=== PATIENT | male | born 1950 | race Caucasian/White ===

== ENCOUNTER 2025-02-03 09:18 | Outpatient (AMB) | payer MEDICARE, OTHER, SELFPAY | END 2025-02-03 10:12 | disposition home or self-care (01) | LOC: HO.HMGAL 09:18 | PROVIDERS: PCP Internal Medicine Endocrinology, Diabetes & Metabolism; Visit Provider Registered Nurse Emergency | DX: J30.89 Other allergic rhinitis (principal) | CPT/HCPCS: 95117; 95165 ==

== ENCOUNTER 2025-03-31 11:30 | Outpatient (AMB) | payer MEDICARE, OTHER, SELFPAY ==
--- OUTSIDE RECORDS SUMMARY | 2024-08-18 10:12 | XMS_ITS | Encounter Summary ---
Author Organization [facility] Address [address] [place] [address] Phone Care Team Providers Care Casting Agent Name Role Phone Gerson Mortensen MD Primary Care Provider + Encounter Details Date Type Department Care Team (Late st Contact Info) Description 08/18/2024 11:12 AM EDT Hospital Encounter [facility] [address] [place] [phone] Sylvie Urbina FNP [address] [place] [address] [email or web address] Social History Tobacco Use Types Packs/Day Years Used Date Smoking Tobacco: Never Smokeless Tobacco: Never Education Answer Date Recorded Are you interested in more education? Not on walter e 08/24/2022 Are you concerned about learning? Not on file 08/24/2022 No 08/24/2022 No 08/24/2022 Digital Access Answer Date Recorded No 09/25/2022 No 09/25/2022 Reliable internet access at home? Not on file 09/25/2022 Device with a working camera? Not on file Sex and Gender Information Value Date Recorded Sex Assigned at Not on file Legal Sex Male 9:41 AM EDT Gender Identity Not on file Sexual Orientation Not on file documented as of this encounter Plan of Treatment Not on file documented as of this encounter Procedures Procedure Name Priority Date/Time Associated Diagnosis Comments XR CHEST PA AND LATERAL 2 VIEWS Urgent/patient waiting 08/18/2024 11:15 AM EDT Viral upper respiratory tract infection with cough documented in this encounter Results * XR CHEST PA AND LATERAL 2 VIEWS (08/18/2024 11:15 AM EDT) Anatomical Region Laterality Modality Chest Computed Radiogr aphy 08/18/2024 11:2 1 AM EDT Impressions 08/18/2024 11:22 AM EDT Mild left lower lobe atelectasis. No other acute abnormality. Narrative 08/18/2024 11:22 AM EDT XR CHEST PA AND LATERAL 2 VIEWS Referring clinician's provided indication for this examination in [facility]: Cough; PRODUCTIVE, SICK X 1 WK, HX ASTHMA COMPARISON: None FINDINGS: Devices/Tubes/Lines: None. Lungs: Mild atelectasis in the left lower lobe. No other air space consolidation. Pleura: Normal. No pleural effusion or pneumothorax. Heart/Mediastinum: Normal heart and mediastinum. Bones/Soft Tissues: Degenerative changes of the spine. No acute osseous abnormality. Procedure Note Norma Gee MD, PhD - 08/18/2024 XR CHEST PA AND LATERAL 2 VIEWS Referring clinician's provided indication for this examination in Epic:Cough; PRODUCTIVE, SICK X 1 WK, HX ASTHMA COMPARISON: None FINDINGS: Devices/Tubes/Lines: None. Lungs: Mild atelectasis in the left lower lobe. No other air spaceconsolidation. Pleura: Normal. No pleural effusion or pneumothorax. Heart/Mediastinum: Normal heart and mediastinum. Bones/Soft Tissues: Degenerative changes of the spine. No acute osseousabnormality. IMPRESSION: Mild left lower lobe atelectasis. No other acute abnormality. Sylvie Urbina JUNIOR LINUX ADMINISTRATOR IMG XR CHEST Final Resul t documented in this encounter Visit Diagnoses Not on filedocumented in this encounter Care Teams Casting Agent Relationship Specialty Start Date End Date Gerson Mortensen MD [address] [place] [phone] PCP - General Internal Medicine 05/17/20 documented as of this encounter Additional Source Comments The information contained in this document represents components of the legal health record. It is not the complete legal health record.[facility]
--- OUTSIDE RECORDS SUMMARY | 2025-03-31 13:55 | XMS_ITS | Encounter Summary ---
Author Organization [facility] Address [address] [facility] [address] [place] [phone] Phone Care Team Providers Care Spiritual Care Coordinator Name Role Phone Hayden Blunt MD Primary Care Provider Unavail Gerson Velasquez MD Primary Care Provider + Encounter Details Date Type Department Care Team (Latest Contact Info) Description 01/29/2019 Transcribe Orders [facility] Phleb [address] [address] Jesus Biswas MD [address] [place] [address], [address] [place] [address] [email or web address] Elevated prostate specific antigen (PSA) (Primary Dx) Social History Tobacco Use Types Packs/Day Years Used Date Smoking Tobacco: Never Assessed Sex and Gender Information Value Date Recorded Sex Assigned at Not on file Legal Sex Male 9:41 AM EDT Gender Identity Not on file Sexual Orientation Not on file documented as of this encounter Plan of Treatment Not on file documented as of this encounter Results * (ABNORMAL) PSA (screening) (01/29/2019 9:47 AM EDT) PSA 10.10(H) 0 - 4.00 ng/mL [facility] Blood 01/29/2019 9:47 AM EDT 01/29/2019 9:49 AM EDT us Jesus iBswas MD LAB BLOOD BKR ORDERABLES Final Result [facility] [address] [place] [address] documented in this encounter Visit Diagnoses Diagnosis Elevated prostate specific antigen (PSA)- Primary documented in this encounter Additional Health Concerns Infection Onset Date Last Indicated Resolved Time CoV-Risk 03/01/2022 03/01/2022 03/12/2022 7:07 AM EST documented as of this encounter Care Teams Spiritual Care Coordinator Relationship Specialty Start Date End Date Hayden Blunt MD PCP - General Endocrinology 01/29/19 05/16/20 Gerson Mortensen MD [address] [place] [phone] PCP - General Internal Medicine 05/17/20 documented as of this encounter Additional Source Comments The information contained in this document represents components of the legal health record. It is not the complete legal health record.[facility]
--- OUTSIDE RECORDS SUMMARY | 2025-03-31 13:55 | XMS_ITS | Clinical Summary ---
Author Organization [facility] Address [address] [place] [address] Phone Care Team Providers Care Customer Experience Analyst Name Role Phone Gerson Mortensen MD Primary Care Provider + Allergies Active Allergy Reactions Criticality Noted Date Comments Simvastatin 07/03/2013 Myalgias Medications rosuvastatin (CRESTOR) 20 MG tablet Take 25 mg by mouth daily. Active fluticasone propion-salmete rol (ADVAIR DISKUS) 100-50 mcg/dose DISKUS Inhale 100 mcg/actuation of fluticasone into the lungs. Active albuterol 90 mcg/actuation inhaler Inhale 2 puffs into the lungs every 6 (six) hours as needed for wheezing. Active metoprolol succinate (TOPROL-XL) 50 MG 24 hr tablet Take 50 mg by mouth daily. 0 Active nitroglycerin (NITROSTAT) 0.[address] 1 TAB UNDER THE TONGUE EVERY 5 MINUTES NEEDED FOR CHEST PAIN. 0 Active ADVAIR DISKUS 250-50 mcg/dose DISKUS TAKE 1 PUFF BY MOUTH TWICE A DAY 2 Active rosuvastatin (CRESTOR) 40 MG tablet Take 40 mg by mouth daily. 2 Active aspirin 81 MG EC tablet Take 81 mg by mouth. 3 Active ezetimibe (ZETIA) 10 mg tablet Take 10 mg by mouth. 4 Active amLODIPine (NORVASC) 5 MG tablet Take 5 mg by mouth. 5 07/25/19 26 Active fluticasone propion-salmete roL (WIXELA INHUB) 250-50 mcg/dose DISKUS Inhale 1 puff into the lungs 2 (two) times a day. 4 Active inhaler spacing device (AEROCHAMBER,BR EATHERITE) Spcr Inhale 1 each into the lungs every 4 (four) hours as needed (with inhaler). 1 each 5 Active Active Problems Problem Noted Date Diagnosed Date Essential hypertension 12/05/2022 Overview (08/14/2024): Last Assessment & Plan: blood pressure well-controlled. Continue beta-arelis at current dose. Type 2 diabetes mellitus with peripheral vascula r disease 05/22/2021 Overview (08/14/2024): ED Elevated PSA 12/25/2018 Overview (08/14/2024): PSA is 6.4 12/22/2018 CAD (coronary artery disease) 06/10/2014 Overview (08/14/2024): -status post left heart cath in April of 2014 showing chronic total occlusion of the distal OM 2 branch of the left circumflex and chronic total occlusion of the distal RCA, and only mild disease of the LAD, with preserved ejection fraction for which medical management was recommended -Ventriculogram at the time of cath showed a preserved ejection fraction without wall motion abnormalities at 55% -Has had good control of his angina with medical management alone since then with CCS class I symptoms -Most recent echocardiogram on 05/25/2020 showing normal biventricular size and systolic function, normal left ventricular regional wall motion with an ejection fraction of 55 to 60%, normal left ventricular diastolic function, normal RV systolic pressure, no hemodynamically significant valve disease Mixed hyperlipidemia 06/23/2008 Overview (08/14/2024): Last Assessment & Plan: Patient's goal LDL is less than 70. He is on maximum dose Crestor. 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 Therefore, we will add Zetia 10 mg daily. Repeat lipid profile in 6 weeks time Allergic rhinitis 07/19/2006 Asthma 07/19/2006 Immunizations Immunization Administration Dates Next Due INFLUENZA, SPLIT VIRUS, TRIV ALENT W/ PRESERVATIVE IM 01/25/2016,02/22/2015,01/28/2008,2006 Influenza High-Dose Trivalen t Preservative Free IM 01/21/2020,02/19/2019,05/17/2017 Influenza Quadrivalent Adjuv anted Preservative Free IM 02/22/2022,04/16/2021 Td (adult),2 Lf Tetanus Toxo id, PF, Adsorbed 07/19/2006 Tdap 07/03/2013 Zoster live 01/25/2016 Social History Tobacco Use Types Packs/Day Years Used Date Smoking Tobacco: Never Smokeless Tobacco: Never Tobacco Cessation:Counseling Given: Not Answered Education Answer Date Recorded Are you interested [...] on file Sexual Orientation Not on file Last Filed Vital Signs Vital Sign Reading Time Taken Comments Blood Pressure 109/75 08/18/2024 10:40 AM EDT Pulse 110 08/18/2024 10:40 AM EDT Temperature 36.8 C (98.3 F) 08/18/2024 10:40 AM EDT Respiratory Rate 19 08/18/2024 10:40 AM EDT Oxygen Saturation 96% 08/18/2024 10:40 AM EDT Inhaled Oxygen Concentration - - Weight 102.1 kg (225 lb) 08/14/2024 6:10 PM EDT Height 182.9 cm (6') 08/14/2024 6:10 PM EDT Body Mass Index 30.52 08/14/2024 6:10 PM EDT Plan of Treatment Health Maintenance Due Date Last Done Comments DEPRESSION SCREENING 1962 HEPATITIS C SCREENING 08/05/1969 COLOGUARD 08/05/1996 COLONOSCOPY 08/05/1996 COLORECTAL CANCER SCREENING 08/05/1996 FIT TEST 08/05/1996 FOBT 08/05/1996 SIGMOIDOSCOPY 08/05/1996 VIRTUAL COLONOSCOPY 08/05/1996 RSV VACCINE (1 - Risk 50-74 years 1-dose series) 08/05/2001 ZOSTER VACCINES (2 of 3) 03/21/2016 01/25/2016 DIABETIC EYE EXAM 08/14/2024 INFLUENZA VACCINE (#1) 2024 , 03/09/2023, 02/22/2022, Additional history exists HEMOGLOBIN A1C 12/06/2024 06/08/2024 COVID-19 VACCINE (2024- season) 2024 02/13/2024, 03/09/2023, 02/22/2022, Additional history exists BLOOD PRESSURE 02/17/2025 08/18/2024 URINE MICROALBUMIN/CREATININE RATIO 06/08/2025 06/08/2024 Adult Td,Tdap Booster 08/26/2033 08/27/2023 , 07/03/2013, 07/19/2006 PNEUMOCOCCAL VACCINES (50+ years) Completed 08/27/2023 SMOKING STATUS SCREENING (Once After 26 Yrs) Completed 08/18/2024 HEPATITIS A VACCINES Aged Out No long er eligible based on patient's age to complete this topic HIB VACCINES Aged Out No longer eligi ble based on patient's age to complete this topic MENINGOCOCCAL VACCINES (ACWY) Aged Out No longer eligible based on patient's age to complete this topic MENINGOCOCCAL VACCINES (B) Aged Out N o longer eligible based on patient's age to complete this topic Medical Devices Not on file Insurance MEDIC[facility] PART [facility] & [facility] MEDIC[facility] PART [facility] & [facility]PPLEMENT MEDICARE PART A & B [facility] MEDICARE SUPPLEMENT MEDICARE PART A & B [facility] EX[facility] MEDICARE SUPPLEMENT MEDICARE PART A & B [facility] EX[facility]ION MEDICARE SUPPLEMENT MEDICARE PART A & B [employer] MEDICARE SUPPLEMENT MEDICARE PART A & B [employer] MEDICARE SUPPLEMENT MEDICARE PART A & B Member Subscriber Plan / Payer ( fective 2016-Present) Name:Milad Dey Member ID:[id number] Relation to Subscriber:Self Name:Milad Dey Subscriber ID:[id number] Payer ID:[id number] Group ID:Not on file Type:Medicare Address: [facility] [employer] [facility].[address] [phone] [facility] MEDICARE SUPPLEMENT MEDICARE PART A & B [facility]TENSION MEDICARE SUPPLEMENT [facility] Address: [address] [phone] Care Teams Customer Experience Analyst Relationship Specialty Start Date End Date Gerson Mortensen MD [address] [place] [id number] PCP - General Internal Medicine 05/17/20 Additional Source Comments The information contained in this document represents components of the legal health record. It is not the complete legal health record.[facility]
--- OUTSIDE RECORDS SUMMARY | 2025-03-31 13:55 | XMS_ITS | Encounter Summary ---
Author Organization [facility] Address [address] [place] [phone] Phone Care Team Providers Care Process Developer Name Role Phone Gerson Mortensen MD Primary Care Provider + Encounter Details Date Type Department Care Team (Latest Contact Info) Description 01/09/2021 Transcribe Orders [facility] Phleb [address] [address] Jesus Biswas MD [address] [place] [address], [address] [address] [email or web address] Elevated prostate specific antigen (PSA) (Primary Dx) [...] this encounter Results * (ABNORMAL) PSA (screening) (01/09/2021 9:46 AM EDT) PSA 4.29(H) 0 - 4.00 ng/mL [facility] Blood 01/09/2021 9:46 AM EDT 01/09/2021 9:47 AM EDT us Jesus Biswas MD LAB BLOOD BKR ORDERABLES Final Result [facility] [address] [place] [address] documented in this encounter Visit Diagnoses Diagnosis Elevated prostate specific antigen (PSA)- Primary documented in this encounter Additional Health Concerns Infection Onset Date Last Indicated Resolved Time CoV-Risk 03/01/2022 03/01/2022 03/12/2022 7:07 AM EST documented as of this encounter Care Teams Process Developer Relationship Specialty Start Date End Date Gerson Mortensen MD [address] [place] [phone] PCP - General Internal Medicine 05/17/20 documented as of this encounter Additional Source Comments The information contained in this document represents components of the legal health record. It is not the complete legal health record.[facility]
--- OUTSIDE RECORDS SUMMARY | 2025-03-31 13:55 | XMS_ITS | Clinical Summary ---
Author Organization [facility] [address] [facility] Address [address] [place] [phone] Phone Care Team Providers Care [employer] Plant Supervisor Name Role Phone Gerson Mortensen MD Primary Care Provider [phone] Allergies Active Allergy Reactions Criticality Noted Date Comments Simvastatin 07/03/2013 Myalgias Medications Wixela Inhub 250-50 mcg/dose diskus inhaler INHALE 1 PUFF BY MOUTH TWICE A DAY 60 each 3 4 Active fluticasone propionate (FLONASE) 50 mcg/actuation nasal spray Administer 1 spray into affected nostril(s). 7 Active aspirin 81 mg EC tablet Take 1 tablet (81 mg total) by mouth 1 (one) time each day. 3 Active nitroglycerin (NITROSTAT) 0.[address] 1 tablet (0.4 mg total) under the tongue. 4 Active sildenafiL (VIAGRA) 100 mg tablet Take 1 tab 1 hour before needed 4 Active amLODIPine (NORVASC) 5 mg tablet Take 1 tablet (5 mg total) by mouth 1 (one) time each day. 30 each 2 5 07/25/19 26 Active ezetimibe (ZETIA) 10 mg tabletIndicati ons:Atheroscle rotic heart disease of ione coronary artery with other forms of angina pectoris (CMS/HCC V24) Take 1 tablet (10 mg total) by mouth 1 (one) time each day. 90 tablet 1 5 Active rosuvastatin (CRESTOR) 40 mg tablet Take 1 tablet (40 mg total) by mouth at bedtime. 90 tablet 1 5 Active albuterol HFA (PROAIR HFA ; PROVENTIL HFA ; VENTOLIN HFA) 90 mcg/actuation inhaler Inhale 2 puffs by mouth every 4 (four) hours if needed for wheezing or shortness of breath. 8.5 g 3 5 Active albuterol HFA (PROAIR HFA ; PROVENTIL HFA ; VENTOLIN HFA) 90 mcg/actuation inhaler Inhale 2 puffs by mouth every 4 (four) hours if needed for wheezing or shortness of breath. 8.5 g 3 5 03/08/20 25 Discontinu ed(Reorder ) Active Problems Problem Noted Date Diagnosed Date Erectile dysfunction 08/27/2023 Essential hypertension 12/05/2022 Overview (03/24/2024): Last Assessment & Plan: blood pressure well-controlled. Continue beta-arelis at current dose. Stable angina ([facility] V24) 12/05/2022 Type 2 diabetes mellitus wit h peripheral vascular disease ([facility] V24, [facility] V28) 05/22/2021 Overview (03/24/2024): ED Elevated PSA 12/25/2018 Overview (03/24/2024): PSA is 6.4 12/22/2018 Bradycardia 03/14/2015 Overview (03/24/2024): Last Assessment & Plan: Patient has ongoing asymptomatic bradycardia felt to be related to his long-term beta-arelis use. He has no symptoms referable to this bradycardia. Will try to split his beta-arelis to 25 mg twice daily in an effort to mitigate his stable angina. Otherwise, we are continuing his beta-blockade as she is tolerating it well Assessment & Plan (07/24/2024 5:07 PM EDT): - Discontinue metoprolol. - Start amlodipine 5 mg. - Informed about potential side effects of amlodipine, including lightheadedness, leg swelling, and stomach upset; advised to take with food. Orders: Ambulatory referral to Cardiology ECG 12 lead Obesity (BMI 30-39.9) 03/14/2015 CAD (coronary artery disease) 06/10/2014 Overview (07/24/2024): -status post left heart cath in April [...] systolic pressure, no hemodynamically significant valve disease Assessment & Plan (07/24/2024 5:07 PM EDT): CCS class I angina. However, I would like to see if I can better control his anginal symptoms mainly to get him to exercise more. - Modify antianginal medication to amlodipine 5 mg. - Discontinue metoprolol. - Continue rosuvastatin 40 mg at bedtime. - Continue baby aspirin. - Continue Zetia for cholesterol management. - Maintain regular exercise, including cardiovascular activities like walking and biking. Orders: Ambulatory referral to Cardiology Mixed hyperlipidemia 06/23/2008 Overview (03/24/2024): Last Assessment & Plan: Patient's goal LDL is less than 70. He is on maximum dose Crestor. 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 Therefore, we will add Zetia 10 mg daily. Repeat lipid profile in 6 weeks time Assessment & Plan (07/24/2024 5:07 PM EDT): - Continue rosuvastatin 40 mg. - Continue Zetia. 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 Overview (03/24/2024): multiple procedures as a child Encounters Date Type Department Care Team Description 01/22/2025 1:00 PM EDT Office Visit Walk-In Clinic - [address] [phone] Timo Sneed, [place] Symptoms of upper respiratory infection (URI) (Primary Dx); COVID 01/22/2025 Nurse Triage Adult Medicine [address] [phone] Gerson Mortensen MD 01/22/2025 Nurse Triage Adult Medicine [address] [phone] Gerson Mortensen MD from Last 3 Months Immunizations Immunization Administration Dates Next Due Influenza trivalent, 0.5mL ( Fluad) 65yo and older 03/09/2023,02/22/2022,04/16/2021,2019,02/19/2019,05/17/2017 Influenza trivalent, 0.5mL, preservative free (Fluarix; FluLaval; Fluzone) ages 6mo and older (Afluria) 3 years and older 01/25/2016,02/22/2015,01/28/2008,2006 Pfizer (ages 12 & older) Biv alent, COVID-19 03/09/2023,12/19/2021 Pneumococcal conjugate 20 va lent (Prevnar 20, PCV 20) 2mo and older 08/27/2023 Td Tetanus diptheria (Tdvax) 7yo and older 07/19/2006 Tdap Tetanus diptheria acell ular pertussis (Boostrix; Adacel) 7yo and older 08/27/2023,07/03/2013 Zoster Live 01/25/2016 Surgical History Surgery Date Site/Laterality Comments VASECTOMY PROCEDURE: AK VASECTOMY UNI/BI SPX W/POSTOP SEMEN EXAMS OTHER SURGICAL HISTORY PROCEDURE: ---- OTHER ----; COMMENT: strabismus surgery HAND SURGERY PROCEDURE: HISTORICAL HAND SURGERY; COMMENT: Dupetryn's contracture OTHER SURGICAL HISTORY 2012 PROCEDURE: ---- OTHER ----; COMMENT: sinus surgery, nasal polyps COLONOSCOPY 08/30 PROCEDURE: AK COLONOSCOPY STOMA DX INCLUDING COLLJ SPEC SPX COLONOSCOPY W/ POLYPECTOMY 12/01/13 PROCEDURE: AK COLSC FLX W/RMVL OF TUMOR POLYP LESION SNARE TQ; COMMENT: tics and adenomas; rpeat in 1 year COLONOSCOPY 02/07/15 PROCEDURE: AK COLONOSCOPY STOMA W/RMVL TAD POLYP/OTH LES SNARE; COMMENT: adenomas and tics; repeat in 3 yrs COLONOSCOPY 02/11/2019 PROCEDURE: HISTORICAL COLONOSCOPY; COMMENT: two polyps CARDIAC CATHETERIZATION KNEE SURGERY Medical History Medical History Date Comments Unspecified asthma(493.90) 07/19/2006 DX:Un specified asthma(493.90) Allergic rhinitis, cause unspecified 07/19/2006 DX:Allergic rhinitis, cause unspecified Contracture of tendon (sheath) 07/19/2006 D X:Contracture of tendon (sheath); COMMENT: Dupuytren's contracture left hand Mechanical strabismus, unspecified 07/19/2006 DX:Mechanical strabismus, unspecified; COMMENT: multiple procedures as a child Amblyopia, unspecified DX:Amblyo carmen, unspecified Cardiac ischemia 03/31/2014 DX:Cardiac isch emia Hx of hemorrhoids 05/13/2017 DX:Hx of hemor rhoids Hx of colonic polyps 05/13/2017 DX:Hx of co lonic polyps Hyperlipidemia Asthma CAD (coronary artery disease) Family History Medical History Relation Name Comments Glaucoma Father Other: congenital heart problem Father diabetes, Cataracts Maternal Grandmother Breast cancer Mother Breast cancer Sister Colon polyps Blindness Neg Hx Macular degeneration Neg Hx Strabismus Neg Hx Relation Name Status Comments Father Maternal Grandmother Mother Sister Social History Tobacco Use Types Packs/Day Years Used Date Smoking Tobacco: Never Smokeless Tobacco: Never Tobacco Cessation:Counseling Given: Not Answered Alcohol Use Standard Drinks/Week Comments Yes 0.8 (1 standard drink = 0.6 oz p ure alcohol) couple drinks a month Interpersonal Safety Answer Date Record ed Physical Abuse Unrecognized value 12/08/2024 Verbal Abuse Unrecognized value 12/08/2024 Sex and Gender Information Value Date Recorded Sex Assigned at Male 12/08/2024 8:54 AM EDT Legal Sex Male 2:23 AM EST Gender Identity Male 12/08/2024 8:54 AM EDT Sexual Orientation Straight 12/08/2024 8: 54 AM EDT Obstetrics History Last Filed Vital Signs Vital Sign Reading Time Taken Comments Blood Pressure 116/75 01/22/2025 1:01 PM EDT Pulse 84 01/22/2025 1:01 PM EDT Temperature 37 C (98.6 F) 01/22/2025 1:01 PM EDT Respiratory Rate 16 12/08/2024 10:50 AM EDT Oxygen Saturation 98% 01/22/2025 1:01 PM EDT Inhaled Oxygen Concentration - - Weight 99.8 kg (220 lb) 12/08/2024 9:16 AM EDT Height 180.3 cm (5' 11 ) 12/08/2024 9:16 AM EDT Body Mass Index 30.68 12/08/2024 9:16 AM EDT Plan of Treatment Upcoming Encounters Date Type Department Care Team (Late st Contact Info) Description 04/07/2025 12:00 PM EST Office Visit Adult Medicine [address] [phone] Jam Tinajero PA [address] [place] [address] Health Maintenance Due Date Last Done Comments Diabetes: Annual Foot Exam 08/05/1961 Diabetes: Annual Retina Eye Exam 08/05/1961 RSV Immunization Adult Patients (1 - Risk 50-74 years 1-dose series) 08/05/2001 Zoster Vaccines (2 of 3) 03/21/2016 01/25/2016 Medicare Annual Wellness Visit 04/07/2022 Social Influencers of Health Screening 04/07/2022 Depression Screening 04/29/2024 08/27/2023 Diabetes: Blood Sugar Control Test (HGBA1C) 12/06/2024 06/08/2024, 02/26/2024, 02/26/2024, Additional history exists COVID-19 Vaccine ( season) 2024 02/13/2024, 03/09/2023, 02/22/2022, Additional history exists Influenza Vaccine (#1) 2024 , 03/09/2023, 02/22/2022, Additional history exists Diabetes: Annual GFR (Glomerular Filtration Rate) 06/08/2025 06/08/2024, 08/27/2023, 08/27/2023 Hypertension/CHF/CAD Annual BMP Blood Test 06/08/2025 06/08/2024, 08/27/2023, 08/27/2023 Diabetes: Annual Urine Albumin-Creatinine Ratio (uACR) 09/08/2025 09/08/2024, 06/08/2024, 08/27/2023 Falls Risk Assessment 12/08/2025 12/08/2024, 024 Colorectal Cancer Screening: Colonoscopy 12/09/2027 12/08/2024, 02/11/2019 Cholesterol Screening (Lipid Panel) 06/08/2029 06/08/2024, 07/16/2023 DTaP,Tdap,and Td Vaccines (4 - Td or Tdap) 08/26/2033 08/27/2023, 07/03/2013, 07/19/2006 Hepatitis C Screening Completed 03/16/2014 Pneumococcal Vaccine: 50+ Years Completed 08/27/2023 HIB Vaccines Aged Out No longer eligi ble based on patient's age to complete this topic HPV Vaccines Aged Out No longer eligi ble based on patient's age to complete this topic Hepatitis A Vaccines Aged Out No long er eligible based on patient's age to complete this topic Hepatitis B Vaccines Aged Out No long er eligible based on patient's age to complete this topic IPV Vaccines Aged Out No longer eligi ble based on patient's age to complete this topic MMR Vaccines Aged Out No longer eligi ble based on patient's age to complete this topic Meningococcal ACWY Vaccine Aged Out N o longer eligible based on patient's age to complete this topic Meningococcal B Vaccine Aged Out No l onger eligible based on patient's age to complete this topic RSV Immunization Patients Under 20 months Aged Out No longer eligible based on patient's age to complete this topic Varicella Vaccines Aged Out No longer eligible based on patient's age to complete this topic Procedures Procedure Name Priority Date/Time Associated Diagnosis Comments POC RAPID [id number], MOLECULAR Routine 01/22/2025 1:10 PM EDT Symptoms of upper respiratory infection (URI) COLONOSCOPY Routine 12/08/2024 10:29 AM EDT Hx of colonic polyps MICROALBUMIN CREATININE URINE RATIO Routine 09/08/2024 1:48 PM EDT Controlled type 2 diabetes mellitus with microalbuminuria, without long-term current use of insulin (CMS/HCC V24, CMS/HCC V28) COMPREHENSIVE METABOLIC PANEL Routine 06/08/2024 9:31 AM EST Type 2 diabetes mellitus with other specified complication, with long-term current use of insulin (CMS/HCC V24, CMS/HCC V28) Essential hypertension Encounter for long-term (current) use of medications HEMOGLOBIN A1C Routine 06/08/2024 9:31 AM EST Type 2 diabetes mellitus with other specified complication, with long-term current use of insulin (CMS/HCC V24, CMS/HCC V28) LIPID PANEL WITH REFLEX TO DIRECT LDL Routine 06/08/2024 9:31 AM EST Mixed hyperlipidemia DEPRESSION SCREENING Routine 08/27/2023 FALLS RISK ASSESSMENT Routine 08/27/2023 HEPATITIS C SCREENING Routine 03/16/2014 from Last 3 Months or Most Recently Relevant to Health Maintenance Results * (ABNORMAL) Poc Rapid [id number], MOLECULAR (01/22/2025 1:10 PM EDT) COVID-19/SARS- COV-2 Rapid POC Positive(A ) Negative Swab Nasopharyngeal structure / Unknown 01/22/2025 1:10 PM EDT us Timo Sneed NP POINT OF CARE TEST ENTER/EDIT ORDERABLES Final Result * COLONOSCOPY Anesthesia - MAC; [facility] ENDOSCOPY (12/08/2024 10:29 AM EDT) Anatomical Region Laterality Modality Endoscopy 12/08/2024 10:0 6 AM EDT Impressions 12/08/2024 10:29 AM EDT - Hemorrhoids found on perianal exam. - Five 5 to 9 mm polyps in the ascending colon, removed with a cold snare. Resected and retrieved. - One 4 mm polyp in the cecum, removed with a jumbo cold forceps. Resected and retrieved. 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 - The examination was otherwise normal on direct and retroflexion views. Recommendation: - Discharge patient to home. - High fiber diet. - Continue present medications. - Await pathology results. - Repeat colonoscopy for surveillance based on pathology results. Narrative 12/08/2024 10:29 AM EDT [facility] GI Patient Name: Irene Dey Procedure Date: 12/08/2024 10:06 AM Date of : 1950 Age: 74 Gender: Male Note Status: Finalized Attending MD: Dorinda Hughes DO, [id number] Procedure Date No Time: 12/08/2024 Procedure: Colonoscopy Indications: High risk colon cancer surveillance: Personal history of colonic polyps Providers: Dorinda Hughes DO Referring MD: Gerson Mortensen MD Medicines: Monitored Anesthesia Care Complications: No immediate complications. Estimated blood loss: Minimal. Estimated Blood Loss: Estimated blood loss was minimal. Procedure: Pre-Anesthesia Assessment: - - Prior to the procedure, a History and Physical was performed, and patient medications and allergies were reviewed. The patient is competent. The risks and benefits of the procedure and the sedation options and risks were discussed with the patient. All questions were answered and informed consent was obtained. Patient identification and proposed procedure were verified by the physician, the nurse, the anesthesiologist, the stars specialist and the entry level lab technician in the pre-procedure area in the endoscopy suite. Mental Status Examination: alert and oriented. Airway Examination: normal oropharyngeal airway and neck mobility. Respiratory Examination: clear to auscultation. CV Examination: normal. Prophylactic Antibiotics: The patient does not require prophylactic antibiotics. Prior Anticoagulants: The patient has taken no anticoagulant or antiplatelet agents. ASA Grade Assessment: II - A patient with mild systemic disease. After reviewing the risks and benefits, the patient was deemed in satisfactory condition to undergo the procedure. The anesthesia plan was to use monitored anesthesia care (MAC). Immediately prior to administration of medications, the patient was re-assessed for adequacy to receive sedatives. The heart rate, respiratory rate, oxygen saturations, blood pressure, adequacy of pulmonary ventilation, and response to care were monitored throughout the procedure. The physical status of the patient was re-assessed after the procedure. After I obtained informed consent, the scope was passed under direct vision. Throughout the procedure, the patient's blood pressure, pulse, and oxygen saturations were monitored continuously. The Colonoscope was introduced through the anus and advanced to the cecum, identified by appendiceal orifice and ileocecal valve. The colonoscopy was performed without difficulty. The patient tolerated the procedure well. The quality of the bowel preparation was good. The ileocecal valve, appendiceal orifice, and rectum were photographed. Findings: Hemorrhoids were found on perianal exam. A few small-mouthed diverticula were found in the sigmoid colon and descending colon. There was no evidence of diverticular bleeding. Five sessile polyps were found in the ascending colon. The polyps were 5 to 9 mm in size. These polyps were removed with a cold snare. Resection and retrieval were complete. Verification of patient identification for the specimen was done. Estimated blood loss was minimal. A 4 mm polyp was found in the cecum. The polyp was sessile. The polyp was removed with a jumbo cold forceps. Resection and retrieval were complete. Estimated blood loss was minimal. There was a large lipoma, at the ileocecal valve. The polyp was removed with a cold snare. Resection and retrieval were complete. Estimated blood loss was minimal. The exam was otherwise without abnormality on direct and retroflexion views. Procedure Code(s): --- Professional --- 31040, Colonoscopy, flexible; with removal of tumor(s), polyp(s), or other lesion(s) by snare technique 10151, 59, Colonoscopy, flexible; with biopsy, single or multiple Diagnosis Code(s): --- Professional --- Z86.010, Personal history of colonic polyps K64.9, Unspecified hemorrhoids D12.2, Benign neoplasm of ascending colon D12.0, Benign neoplasm of cecum D17.5, Benign lipomatous neoplasm of intra-abdominal organs CPT copyright 2020 [employer]. All rights reserved. The codes documented in this report are preliminary and upon mounter sousaphones review may be revised to meet current compliance requirements. DORINDA Hughes DO 12/08/2024 10:29:06 AM This report has been signed electronically.Dorinda Hughes DO Number of Addenda: 0 Note Initiated On: 12/08/2024 10:06 AM Scope Withdrawal Time: 0 hours 11 minutes 47 seconds Scope In: 10:10:42 AM Scope Out: 10:26:45 AM Endoscopy Department at [facility] - [address] [place] [phone] Procedure Note Dorinda Hughes DO - 12/08/2024 [facility] GI Patient Name: Irene Dey Procedure Date: 12/08/2024 10:06 AM Date of : 1950 Age: 74 Gender: Male Note Status: Finalized Attending MD: Dorinda Hughes DO, [id number] Procedure Date No Time: 12/08/2024 Procedure: Colonoscopy Indications: High risk colon cancer surveillance: Personalhistory of colonic polyps Providers: Dorinda Hughes DO Referring MD: Gerson Mortensen MD Medicines: Monitored Anesthesia Care Complications: No immediate complications. Estimated blood loss: Minimal. Estimated Blood Loss: Estimated blood loss was minimal. Procedure: Pre-Anesthesia Assessment: - - Prior to the procedure, a History and Physicalwas performed, and patient medications and allergieswere reviewed. The patient is competent. The risks and benefits of the procedure and the sedation optionsand risks were discussed with the patient. Allquestions were answered and informed consent was obtained. Patient identification and proposed procedure were verified by the physician, the nurse, the anesthesiologist, the stars specialist and thetechnician in the pre-procedure area in the endoscopy suite. Mental Status Examination: alert and oriented.Airway Examination: normal oropharyngeal airway and neck mobility. Respiratory Examination: clear to auscultation. CV Examination: normal. Prophylactic Antibiotics: The patient does not requireprophylactic antibiotics. Prior Anticoagulants: The patient has taken no anticoagulant or antiplatelet agents. ASA Grade Assessment: II - A patient with mild systemic disease. After reviewing the risks and benefits,the patient was deemed in satisfactory condition to undergo the procedure. The anesthesia plan was touse monitored anesthesia care (MAC). Immediately priorto administration of medications, the patient was re-assessed for adequacy to receive sedatives. The heart rate, respiratory rate, oxygen saturations, blood pressure, adequacy of pulmonary ventilation,and response to care were monitored throughout the procedure. The physical status of the patient was re-assessed after the procedure. After I obtained informed consent, the scope was passed under direct vision. Throughout theprocedure, the patient's blood pressure, pulse, and oxygen saturations were monitored continuously. The Colonoscope was introduced through the anus and advanced to the cecum, identified by appendiceal orifice and ileocecal valve. The colonoscopy was performed without difficulty. The patient tolerated the procedure well. The quality of the bowel preparation was good. The ileocecal valve,appendiceal orifice, and rectum were photographed. Findings: Hemorrhoids were found on perianal exam. A few small-mouthed diverticula were found in the sigmoid colon and descending colon. There was no evidence of diverticular bleeding. Five sessile polyps were found in the ascendingcolon. The polyps were 5 to 9 mm in size. These polypswere removed with a cold snare. Resection and retrieval were complete. Verification of patientidentification for the specimen was done. Estimated blood loss was minimal. A 4 mm polyp was found in the cecum. The polyp was sessile. The polyp was removed with a jumbo cold forceps. Resection and retrieval were complete. Estimated blood loss was minimal. There was a large lipoma, at the ileocecal valve.The polyp was removed with a cold snare. Resection and retrieval were complete. Estimated blood loss was minimal. The exam was otherwise without abnormality ondirect and retroflexion views. Procedure Code(s): --- Professional --- 82399, Colonoscopy, flexible; with removal of tumor(s), polyp(s), or other lesion(s) by snare technique 11444, 59, Colonoscopy, flexible; with biopsy,single or multiple Diagnosis Code(s): --- Professional --- Z86.010, Personal history of colonic polyps K64.9, Unspecified hemorrhoids D12.2, Benign neoplasm of ascending colon D12.0, Benign neoplasm of cecum D17.5, Benign lipomatous neoplasm ofintra-abdominal organs CPT copyright 2020 [employer]. All rights reserved. The codes documented in this report are preliminary and upon mounter sousaphones reviewmay be revised to meet current compliance requirements. DORINDA Hughes DO 12/08/2024 10:29:06 AM This report has been signed electronically.Dorinda Hughes DO Number of Addenda: 0 Note Initiated On: 12/08/2024 10:06 AM Scope Withdrawal Time: 0 hours 11 minutes 47 seconds Scope In: 10:10:42 AM Scope Out: 10:26:45 AM Endoscopy Department at [facility] - [address] [place] [id number] IMPRESSION: - Hemorrhoids found on perianal exam. - Five 5 to 9 mm polyps in the ascending colon, removed with a cold snare. Resected andretrieved. - One 4 mm polyp in the cecum, removed with a jumbo cold forceps. Resected and retrieved. 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 - The examination was otherwise normal on directand retroflexion views. Recommendation: - Discharge patient to home. - High fiber diet. - Continue present medications. - Await pathology results. - Repeat colonoscopy for surveillance based on pathology results. us Dorinda Hughes DO GI~PROCEDURE ORDERABLES Final Re sult * Microalbumin creatinine urine ratio (09/08/2024 1:48 PM EDT) Creatinine, Urine 51.0 mg/dL LAB CHEMISTRY METHOD 09/08/2024 5:47 PM EDT [facility] Microalb, Ur 9.1 0.0 - 29.0 mg/L LAB CHEMISTRY METHOD 09/08/2024 5:47 PM EDT [facility] Microalb/Creat Ratio 18 <30 mg/g creat LAB CHEMISTRY METHOD 09/08/2024 5:47 PM EDT [facility] Urine Urine specimen obtained by clean catch procedure / Unknown Non-blood Collection / Unknown 09/08/2024 1:48 PM EDT 09/08/2024 1:48 PM EDT us Gerson Mortensen MD LAB URINE ORDERABLES Final Resu lt [facility] [address] [place] [address], [place] [phone] * Lipid panel with reflex to direct LDL (06/08/2024 9:31 AM EST) Cholesterol 121 0 - 200 mg/dL LAB CHEMISTRY METHOD 06/08/2024 12:57 PM EST [facility] Triglycerides 97 0 - 150 mg/dL LAB CHEMISTRY METHOD 06/08/2024 12:57 PM EST [facility] HDL 44 >=40 mg/dL LAB CHEMISTRY METHOD 06/08/2024 12:57 PM [facility] LDL Calculated 58 0 - 100 mg/dL LAB CHEMISTRY METHOD 06/08/2024 12:57 PM EST [facility] VLDL Cholesterol Saul 19.4 mg/dL LAB CHEMISTRY METHOD 06/08/2024 12:57 PM [facility] Non HDL Chol. (LDL+VLDL) 77 <145 mg/dL LAB CHEMISTRY METHOD 06/08/2024 12:57 PM EST [facility] Chol/HDL Ratio 2.8 0.0 - 4.4 LAB CHEMISTRY METHOD 06/08/2024 12:57 PM [facility] Blood Venous blood specimen / Unknown Venipuncture / Unknown 06/08/2024 9:31 AM EST 06/08/2024 9:31 AM EST us Gerson Mortensen MD LAB BLOOD ORDERABLES Final Resu lt Performing Organization Address City/[facility]/ZIP Co de Phone Number [facility] [address] [place] [address], [place] [phone] * (ABNORMAL) Hemoglobin A1c (06/08/2024 9:31 AM EST) Hemoglobin A1C 6.9(H) <6.5 % LAB CHEMISTRY METHOD 06/08/2024 1:38 PM [facility] Mean Bld Glu Estim. 151 mg/dL LAB CHEMISTRY METHOD 06/08/2024 1:38 PM [facility] Blood Venous blood specimen / Unknown Venipuncture / Unknown 06/08/2024 9:31 AM EST 06/08/2024 9:31 AM EST us Gerson Mortensen MD LAB BLOOD ORDERABLES Final Resu lt [facility] [address] [place] [address], * (ABNORMAL) Comprehensive metabolic panel (06/08/2024 9:31 AM EST) [facility] Sodium 137 133 - 145 mmol/L LAB CHEMISTRY METHOD 06/08/2024 12:57 PM [facility] Potassium 3.9 3.5 - 5.5 mmol/L LAB CHEMISTRY METHOD 06/08/2024 12:57 PM [facility] Chloride 105 96 - 110 mmol/L LAB CHEMISTRY METHOD 06/08/2024 12:57 PM [facility] CO2 26 21 - 32 mmol/L LAB CHEMISTRY METHOD 06/08/2024 12:57 PM [facility] Anion Gap 6 3 - 11 LAB CHEMISTRY METHOD 06/08/2024 12:57 PM [facility] Glucose 140(H) 70 - 100 mg/dL LAB CHEMISTRY METHOD 06/08/2024 12:57 PM [facility] BUN 17 5 - 25 mg/dL LAB CHEMISTRY METHOD 06/08/2024 12:57 PM [facility] Creatinine 1.02 0.70 - 1.30 mg/dL LAB CHEMISTRY METHOD 06/08/2024 12:57 PM [facility] eGFR 78 >=60 mL/min/1. 73m2 LAB CHEMISTRY METHOD 06/08/2024 12:57 PM [facility] Comment:Calculation based on the Chronic Kidney Disease Epidemiology Collaboration (CKD-EPI) equation refit without adjustment for race. BUN/Creatinine Ratio 16.7 LAB CHEMISTRY METHOD 06/08/2024 12:57 PM [facility] Calcium 9.5 8.5 - 10.5 mg/dL LAB CHEMISTRY METHOD 06/08/2024 12:57 PM [facility] AST (SGOT) 17 10 - 42 unit/L LAB CHEMISTRY METHOD 06/08/2024 12:57 PM [facility] ALT (SGPT) 29 10 - 60 unit/L LAB CHEMISTRY METHOD 06/08/2024 12:57 PM [facility] Alkaline Phosphatase 62 42 - 121 unit/L LAB CHEMISTRY METHOD 06/08/2024 12:57 PM [facility] Total Protein 6.9 6.0 - 8.0 g/dL LAB CHEMISTRY METHOD 06/08/2024 12:57 PM [facility] Albumin 3.8 3.2 - 5.0 g/dL LAB CHEMISTRY METHOD 06/08/2024 12:57 PM [facility] Total Bilirubin 1.1 0.0 - 1.4 mg/dL LAB CHEMISTRY METHOD 06/08/2024 12:57 PM [facility] Blood Venous blood specimen / Unknown Venipuncture / Unknown 06/08/2024 9:31 AM EST 06/08/2024 9:31 AM EST us Gerson Mortensen MD LAB BLOOD ORDERABLES Final Resu lt [facility] [address] [place] [address], * Falls Risk Assessment (08/27/2023) Falls Risk Assessment abstracted Historical Provider HEALTH MAINTENANCE Final Result * Depression Screening (08/27/2023) Depression Screening abstracted Historical Provider HEALTH MAINTENANCE Final Result * Hepatitis C Screening (03/16/2014) Hepatitis C Screening abstracted Historical Provider HEALTH MAINTENANCE Final Result from Last 3 Months or Most Recently Relevant to Health Maintenance Insurance MEDICARE [facility] Care Teams City Plant Supervisor Relationship Specialty Start Date End Date Gerson Mortensen MD [address] [place] [phone] PCP - General Internal Medicine 03/31/20
--- OUTSIDE RECORDS SUMMARY | 2025-03-31 13:55 | XMS_ITS | Encounter Summary ---
Author Organization [facility] Address [address] [place] [phone] Phone Care Team Providers Care Face Painter Name Role Phone Gerson Mortensen MD Primary Care Provider + Encounter Details Date Type Department Care Team (Latest Contact Info) Description 12/22/2024 Transcribe Orders [facility] [place] [address] [place] [address] [place] [address] [place] [address] [place] [phone] [email or web address] Screening for prostate cancer (Primary Dx) Social History Tobacco Use Types [...] this encounter Results * (ABNORMAL) PSA (screening) (12/22/2024 10:40 AM EDT) PSA 9.55(H) 0 - 4.00 ng/mL [facility] Comment: Test Methodology Analia [id number] Patient results determined by assays using different manufacturers or methods may not be comparable. Blood 12/22/2024 10:4 0 AM EDT 12/22/2024 10:43 AM EDT us [place] LAB BLOOD BKR ORDERABLES Final R esult [facility] [address] [place] [address] documented in this encounter Visit Diagnoses Diagnosis Screening for prostate cancer- Primary Special screening for malignant neoplasm of prostate documented in this encounter Care Teams Face Painter Relationship Specialty Start Date End Date Gerson Mortensen MD [address] [place] [address] PCP - General Internal Medicine 05/17/20 documented as of this encounter Additional Source Comments The information contained in this document represents components of the legal health record. It is not the complete legal health record.[facility]
== END 2025-03-31 11:31 | disposition home or self-care (01) ==
LOC: HO.HMGAL 11:30
PROVIDERS: PCP Internal Medicine; Visit Provider Registered Nurse Emergency
DX: J30.89 Other allergic rhinitis (principal)
CPT/HCPCS: 95117; 95165